=== PATIENT | female | born 1990 | race Caucasian/White ===

== ENCOUNTER → 2019-09-01 11:33 | Outpatient (BNVA) | payer OTHER, SELFPAY | PROVIDERS: Family Provider Nurse Practitioner Family; PCP Nurse Practitioner Family; Visit Provider Family Medicine | DX: O23.42 Unspecified infection of urinary tract in pregnancy, second trimester (principal); R39.9 Unspecified symptoms and signs involving the genitourinary system; Z3A.27 27 weeks gestation of pregnancy | CPT/HCPCS: 81003 ==

== ENCOUNTER 2019-12-06 00:17 | Inpatient (IN) | payer OTHER, SELFPAY ==
[2019-12-05] VITALS (162 sets, daily range): BP systolic 0–165; BP diastolic 0–103; PULSE 50–104; RESP 16–17; TEMP 36.6–37.5; O2SAT 89–100; BMI 32.5
[2019-12-05 07:03] LABS: Basophils % 0.3 %; Eosinophils # 0.2 10^3/uL (0.0-0.8); Eosinophils % 1.4 %; Hematocrit 34.5 % (37.0-47.0); Hemoglobin 11.1 g/dL (11.5-15.3); Lymphocytes # 1.9 10^3/uL (0.8-4.8); Lymphocytes % 17.2 %; Mean Corpuscular HGB Conc 32.2 g/dL (30.0-36.0); Mean Corpuscular Hemoglobin 27.8 pg (28.0-34.0); Mean Corpuscular Volume 86.3 fL (81-99); Mean Platelet Volume 11.1 fL (7.4-10.4); Monocytes # 0.8 10^3/uL (0.2-0.9); Monocytes % 7.7 %; Neutrophils # 7.9 10^3/uL (1.8-7.7); Neutrophils % 72.4 %; Nucleated Red Blood Cells % 0 %; Platelet Count 221 10^3/cmm (130-400); Red Cell Distribution Width 15.3 % (12.1-15.1); White Blood Count 10.9 10^3/uL (4.0-10.0)
[2019-12-05] MEDS: oxytocin 30 UNIT/500 ML BAG IV (07:15)
[2019-12-05] MEDS: dextrose 5%-lactated ringers 1,000 ML 125 ML IV ×3 (07:18→18:27)
[2019-12-05] MEDS: lactated ringers 1,000 ML 999 ML IV ×3 (13:53→14:54)
--- NOTE | 2019-12-05 15:21 | ANES.PREANE2 ---
Pre-Anesthetic Assessment Pre-Anesthetic Assessment: Height/Weight: Height 1.65 m Weight 88.904 kg Temp Pulse Resp BP Pulse Ox 98 F 70 16 117/61 97 12/05/19 13:56 12/05/19 15:16 12/05/19 13:56 12/05/19 15:19 12/05/19 15:13 Preop Diagnosis: IUP Proposed Procedure: epidural Familial anesthetic complications: none Last intake: eating popsciles Social: Social History: No alcohol and No tobacco Exam: Pre-Anes Outpt Exam: alert, oriented x 3, clear to auscultation bilaterally and regular rate & rhythm Airway: Cervical ROM: WNL MP: 2 Dentition: Full History/ROS: No significant history except as noted Anesthetic Plan: ASA status: 2 Anesthesia: Regional (specify below) Risk of > 500 ml blood loss (7ml/kg in children): No Meds/Allergies Current Medications: Current Medications Generic Name Dose Route Start Last Admin Trade Name Freq PRN Reason Stop Dose Admin Oxytocin 30 unit in 500 ml s @ 1 mls/hr 12/05/19 06:15 12/05/19 12:15 Pitocin IV 26 milliunit/min .Q24H SADE 26 mls/hr Titration Protocol 1 MILLIUNIT/MIN Dextrose/Lactated Ringer's 1,000 mls @ 125 m ls/hr 12/05/19 06:15 12/05/19 13:54 Dextrose 5%-Lact ated Ringers IV 0 mls/hr .Q8H SADE Infusion PFSH Anesthesia Female Reproductive History: Date of last menstrual period: 02/23/19 (27 WEEKS - DUE DATE 11-30-19) : 2 Para: 0 Data Anesthesia CBC & Chem 7: 12/05/19 06:40 Other Labs: Laboratory Results - last 48 hr 12/05/19 06:40 WBC 10.9 H RBC 4.00 L Hgb 11.1 L Hct 34.5 L MCV 86.3 MCH 27.8 L MCHC 32.2 RDW 15.3 H Plt Count 221 MPV 11.1 H Neut % (Auto) 72.4 Lymph % (Auto) 17.2 [place] % (Auto) 7.7 Eos % (Auto) 1.4 Baso % (Auto) 0.3 Neut # (Auto) 7.9 H Lymph # (Auto) 1.9 [place] # (Auto) 0.8 Eos # (Auto) 0.2 Baso # (Auto) 0.0 Nucleated RBC % (auto) 0 Nucleated RBCs # 0.0 Cardiac Studies: No Data to Display
--- NOTE | 2019-12-05 15:21 | ANES.PROC ---
Anesthesia Procedures Procedure/Date: 12/05/19 Epidural: Time Out Performed: Yes Consents Signed: Procedure Consent and NPO Consent Consent: requested by attending/covering physician, from patient, risks and benefits reviewed and patient agrees to proceed Lumbar Level: L2-L3 Epidural position: sitting Epidural procedure: sterile prep of area, 1% lidocaine to numb the area, 18 g needle, negative for paresthesia passed, neg for paresthesia, test dose given, 1.5% xylocaine 1:200k epi (3 cc), placed PCEA, no systemic response, sterile dressing applied, L.U.D. no apparent complications and 0.2% Ropiavacaine @ mls/hr (13 ml/hr) Additional Comments: CARLENE at 5 cm, threaded to 11 cm. Bupivicaine 0.25% 8 cc w/ fentanyl 100 mcg given via epidural with good relief (pain level decreased from 5 to 3). Noted stronger block on L side, patient's l leg numb. Instructed patient to use epidural bolus to increase amount of fluid in space and spread over to R side, instructed to lay on R side. If r sided pain, next step would be to pull back 1 cm to 10 cm.
[2019-12-05] MEDS: ondansetron 2 mg/ML SDV 2 mL 4 MG IVP (22:09)
--- NOTE | 2019-12-05 23:54 | PM.DELIVERY ---
Delivery Note: Date of delivery: December 05, 2019 Pre-Delivery Course: The patient had routine care at [facility]. She was GBS negative. Her was uncomplicated. Delivery: This is a 29-year-old at 40 weeks 5 days gestation who was admitted for postdate induction. Her cervix was favorable so she was placed on Pitocin. She had artificial rupture of membranes with a small amount of clear fluid. She received an epidural for pain management. Rupture of membranes was approximately 10 hours prior to delivery. She had a normal spontaneous vaginal delivery of a viable male infant weight 4120 g 9 pounds 1 ounce over an intact perineum. Apgars 8 and 9. The infant was suctioned at delivery and placed on the mother's chest. The cord was clamped and cut. The placenta was delivered grossly intact and normal to inspection. There was a 3rd degree perineal laceration. The anal sphincter muscles were reapproximated using 3-0 Vicryl in an interrupted fashion. The second-degree laceration was then repaired using 3-0 chromic in a running fashion. Mother and infant were doing well after delivery. Estimated blood loss 300 mL A&P Assessment and plan (1) Normal spontaneous vaginal delivery: Status: Acute (2) Third degree perineal laceration during delivery: Status: Acute Coding Level of Care Code Acute Computational Theory Scientist for [facility] Diagnoses Normal spontaneous vaginal delivery O80 Third degree perineal laceration during delivery O70.20
[2019-12-06] VITALS (20 sets, daily range): BP systolic 0–168; BP diastolic 0–78; PULSE 64–83; RESP 16–20; TEMP 36.6–37.2; O2SAT 96–98
[2019-12-06] MEDS: oxytocin 30 UNIT/500 ML BAG 600 UNIT IV (07:32)
[2019-12-06] MEDS: prenatal vitamin Capsule 1 CAP PO (08:52)
[2019-12-06] MEDS: docusate sodium 100 mg Capsule PO ×2 (08:53→18:43)
[2019-12-06] MEDS: benzocaine-menthol 78 gm Canister 1 SPRAY TOPICAL (08:53)
[2019-12-06 12:46] LABS: Hemoglobin 10.3 g/dL (11.5-15.3); Mean Corpuscular HGB Conc 32.2 g/dL (30.0-36.0); Mean Corpuscular Hemoglobin 27.8 pg (28.0-34.0); Mean Corpuscular Volume 86.5 fL (81-99); Mean Platelet Volume 11.1 fL (7.4-10.4); Platelet Count 209 10^3/cmm (130-400); Red Cell Distribution Width 15.5 % (12.1-15.1); White Blood Count 20.6 10^3/uL (4.0-10.0)
--- NOTE | 2019-12-06 19:01 | P.PN_ITS ---
Subjective Subjective: Interval history: Doing fine. 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 Perineal discomfort relieved with Dermoplast Vitals/I&O/Wt Last Vital Signs Temp 97.8 F 12/06/19 10:00 Pulse 70 12/06/19 10:00 Resp 20 H 12/06/19 10:00 BP 122/72 12/06/19 10:00 Pulse Ox 98 12/06/19 10:00 12/06/19 12/06/19 12/06/19 06:59 14:59 22:59 Intake Total 1433.917 / 5836.367 Output Total 700 / 1000 2500 / 2500 200 / 2700 Balance 733.917 / 4836.367 -2500 / -2500 -200 / -2700 Weight last 48 hrs Weight 196 lb Weight 196 lb Physical Exam Const: COMMON NORMALS: no acute distress and healthy appearing GENERAL APPEARANCE: cooperative and comfortable HENMT: COMMON NORMALS: normocephalic HEAD & SCALP: normocephalic Eye: COMMON NORMALS: Equal, round and reactive pupils present and EOMs intact bilaterally PUPIL: Yes Equal, round and reactive pupils present Chest: COMMONS NORMALS: normal inspection of the chest Resp: COMMON NORMALS: normal respiratory effort and clear to auscultation bilaterally AUSCULTATION: clear to auscultation bilaterally Cardio: COMMON NORMALS: regular rate and regular rhythm RATE: regular rate RHYTHM: regular rhythm GI: COMMON NORMALS: Soft to palpation, non-tender and no masses PALPATION: Yes Soft to palpation Extremity: COMMON NORMALS: no calf tenderness and no pedal edema Urinary Catheter Management^: Hammond: Cath Placed During This Visit: yes, but has since been removed by the nurse Reason for Continuing Indwelling Catheter: Other Urinary Catheter Date of Insertion: 12/05/19 Urinary Catheter Time of Insertion: 15:59 Date Urinary Catheter Removed: 12/05/19 Time Urinary Catheter Discontinued: 22:10 Data : 12/06/19 12:39 A&P Assessment and plan (1) Third degree perineal laceration during delivery: Status: Acute (2) Normal spontaneous vaginal delivery: Doing well. Continue routine care Status: Acute Attestations Medical Necessity Statement*: Routine care Coding Level of Care Code Acute Tongue Stitcher for [facility]joshua Diagnoses Third degree perineal laceration during delivery O70.20 Normal spontaneous vaginal delivery O80
[2019-12-07 03:10] VITALS: BP 119/71; PULSE 59; RESP 18; TEMP 36.7; O2SAT 97
[2019-12-07] MEDS: docusate sodium 100 mg Capsule PO (08:49)
[2019-12-07] MEDS: prenatal vitamin Capsule 1 CAP PO (08:50)
[2019-12-07 10:10] VITALS: BP 120/70; PULSE 63; RESP 18; TEMP 36.8; O2SAT 97
--- NOTE | 2019-12-07 10:31 | PM.OBGYDC ---
Discharge Providers PASTRY ARTIST Date of Admission: 12/06/19 00:17 Date of Discharge: 12/07/19 Attending Provider at Admission: Sarai Minaya MD Attending Provider at Discharge: Sarai Minaya MD Primary Care Provider: Alexandre Tobias Diagnoses at Discharge Discharge Diagnosis (1) Third degree perineal laceration during delivery: Status: Acute (2) Normal spontaneous vaginal delivery: Status: Acute Reason for Visit Reason for Visit: Reason For Visit: INDUCTION Hospital Course Hospital Course: This is a 29-year-old G2, P1 who was admitted for postdate induction. She had a normal spontaneous vaginal delivery of a viable male infant. Mother and infant did well after delivery. She had decreased vaginal bleeding, was ambulating, tolerating a regular diet, and was comfortable with discharge home on day 1-2. Information Peripartum Data: Infant Delivery Method: Vaginal Physical Exam HENMT: COMMON NORMALS: normocephalic HEAD & SCALP: normocephalic FACE & SINUS: normal facial exam Eye: COMMON NORMALS: Equal, round and reactive pupils present and EOMs intact bilaterally PUPIL: Yes Equal, round and reactive pupils present Chest: COMMONS NORMALS: normal inspection of the chest Resp: COMMON NORMALS: normal respiratory effort, No use of accessory muscles and clear to auscultation bilaterally AUSCULTATION: clear to auscultation bilaterally Cardio: COMMON NORMALS: regular rate and regular rhythm RATE: regular rate RHYTHM: regular rhythm GI: COMMON NORMALS: Soft to palpation, non-tender and no masses PALPATION: Yes Soft to palpation Extremity: GENERAL: Yes calf tenderness and Yes edema Psych: COMMON NORMALS: mental status grossly normal Urinary Catheter Management^: Hammond: Cath Placed During This Visit: yes, but has since been removed by the nurse Reason for Continuing Indwelling Catheter: Other Urinary Catheter Date of Insertion: 12/05/19 Urinary Catheter Time of Insertion: 15:59 Date Urinary Catheter Removed: 12/05/19 Time Urinary Catheter Discontinued: 22:10 Discharge Data Data Completed and Pending: Labs from last 24 hours 12/06/19 12:39 WBC 20.6 H RBC 3.70 L Hgb 10.3 L Hct 32.0 L MCV 86.5 MCH 27.8 L MCHC 32.2 RDW 15.5 H Plt Count 209 MPV 11.1 H Vitals: Last Vital Signs Temp 98.2 F 12/07/19 10:10 Pulse 63 12/07/19 10:10 Resp 18 12/07/19 10:10 BP 120/70 12/07/19 10:10 Pulse Ox 97 12/07/19 10:10 Discharge Plan Discharge Patient Disposition: Home, Self-Care Condition: Stable Prescriptions: Continued prenat.vits,greg,[id number] Tablet 1 tab PO DAILY RF: 0 Iron (ferrous sulfate) 325 mg (65 mg iron) Tablet 325 mg PO DAILY RF: 0 cranberry 400 mg Capsule 400 mg PO DAILY RF: 0 Discharge Orders: Discharge Order (Routine); Ordered 12/07/19 Ordered By: Sarai Minaya Discharge Diet: Usual diet Discharge Activity: Limit activity as instructed Discharge Attestations PASTRY ARTIST Time Spent in Discharge Care*: less than 30 min Coding Level of Care Code Acute Cardiac Nurse Specialist for [facility] Diagnoses Third degree perineal laceration during delivery O70.20 Normal spontaneous vaginal delivery O80
[2019-12-07 16:30] VITALS: BP 112/73; PULSE 73; RESP 18; TEMP 36.8; O2SAT 99
== END 2019-12-07 14:55 | disposition home or self-care (01) | DRG 806 ==
LOC: OBGYN 00:18
PROVIDERS: Admitting Provider Family Medicine; Family Provider Nurse Practitioner Family; PCP Nurse Practitioner Family; Visit Provider Family Medicine
DX: O48.0 Post-term pregnancy (principal); O70.20 Third degree perineal laceration during delivery, unspecified; Z37.0 Single live birth; Z3A.40 40 weeks gestation of pregnancy; Z87.440 Personal history of urinary (tract) infections
CPT/HCPCS: 12345; 36415; 51702; 59025; 59409; 85025; 85027; 96375; J2405; J2795

== ENCOUNTER 2022-01-01 06:44 | Inpatient (IN) | payer OTHER, SELFPAY ==
[2022-01-01] VITALS (79 sets, daily range): BP systolic 104–168; BP diastolic 55–91; PULSE 53–93; RESP 16–17; TEMP 36.4–40.4; O2SAT 98; BMI 37.0
[2022-01-01 07:56] LABS: Basophils % 0.2 %; Eosinophils # 0.1 10^3/uL (0.0-0.8); Hematocrit 34.5 % (37.0-47.0); Hemoglobin 11.9 g/dL (11.5-15.3); Lymphocytes # 2.1 10^3/uL (0.8-4.8); Lymphocytes % 18.4 %; Mean Corpuscular HGB Conc 34.5 g/dL (30.0-36.0); Mean Corpuscular Hemoglobin 29.3 pg (28.0-34.0); Mean Platelet Volume 11.2 fL (7.4-10.4); Monocytes # 0.9 10^3/uL (0.2-0.9); Monocytes % 7.6 %; Neutrophils # 8.39 10^3/uL (1.8-7.7); Neutrophils % 72.3 %; Nucleated Red Blood Cells % 0 %; Platelet Count 232 10^3/cmm (130-400); Red Blood Count 4.06 10^6/uL (4.1-5.3); Red Cell Distribution Width 13.6 % (12.1-15.1); White Blood Count 11.6 10^3/uL (4.0-10.0)
[2022-01-01] MEDS: oxytocin 30 UNIT/500 ML BAG IV (07:57)
[2022-01-01] MEDS: dextrose 5%-lactated ringers 1,000 ML 125 ML IV (07:57)
[2022-01-01] MEDS: lactated ringers 1,000 ML 999 ML IV ×2 (13:00→14:21)
--- NOTE | 2022-01-01 14:14 | ANES.PREANE2 ---
Pre-Anesthetic Assessment Height/Weight: Height 1.65 m Weight 101.151 kg Temp Pulse Resp BP 98.6 F 73 17 122/60 01/01/22 10:08 01/01/22 13:36 01/01/22 07:00 01/01/22 13:36 Preop Diagnosis: IUP epidural Familial anesthetic complications: none Was Beta Celsa taken within 24 hours: N/A Was Clonidine taken within 24 hours: N/A Last Intake: 06:00 Social No alcohol and No tobacco Exam alert, oriented x 3, clear to auscultation bilaterally and regular rate & rhythm Airway Submandibular: within normal limits Cervical ROM: within normal limits Mallampati: Class II Dentition: full Pulmonary None reported CV/HEM None reported None reported Hepatic None reported GI None reported Metabolic None reported Musc/skel None reported Neuropsych None reported Anesthetic Plan ASA status: 2 Anesthesia: Regional (specify below) (epidural) Medications/Allergies Home Medications Medication Instructions Recorded Confirmed Last Taken Type prenat.vits,greg,qnm-tfsy-vbcpj 1 tab PO DAILY 09/01/19 01/01/22 12/05/19 05:00 History ferrous sulfate 325 mg (65 mg 325 mg PO DAILY 12/05/19 01/01/22 12/05/19 05:00 History iron) tablet (Iron (ferrous sulfate)) Allergies Allergy/AdvReac Type Severity Reaction Status Date / Time No Known Allergies Allergy Verified 12/05/19 06:51 Current Medications Generic Name Dose Route Start Last Admin Trade Name Freq PRN Reason Stop Dose Admin Dextrose/Lactated Ringer's 1,000 mls @ 125 mls/hr 01/01/22 07:00 01/01/22 07:57 Dextrose 5%-Lactated Ringers IV 125 mls/hr .Q8H SADE Administration Oxytocin 30 unit in 500 mls @ 1 mls/hr 01/01/22 07:30 01/01/22 11:00 Pitocin IV 20 milliunit/min .Q24H SADE 20 mls/hr Titration Protocol 1 MILLIUNIT/MIN Lactated Ringer's 1,000 mls @ 999 mls/hr 01/01/22 12:43 01/01/22 13:00 Lactated Ringers IV 999 mls/hr .Q1H1M PRN Administration See label comments PFSH Anesthesia Female Reproductive History Date of last menstrual period: 02/23/19 (27 WEEKS - DUE DATE 11-30-19) : 3 Para: 0 Data Anesthesia : 01/01/22 07:30 Short CBC 01/01/22 Range/Units 07:30 WBC 11.6 H (4.0-10.0) 10^3/uL Hgb 11.9 (11.5-15.3) g/dL Hct 34.5 L (37.0-47.0) % MCV 85.0 (81-99) fl Plt Count 232 (130-400) 10^3/cmm Neut % (Auto) 72.3 % Neut # (Auto) 8.39 H (1.8-7.7) 10^3/uL Cardiac Studies: No Data to Display
--- NOTE | 2022-01-01 14:51 | ANES.PROC ---
Anesthesia Procedures Procedure/Date: 01/01/22 Epidural: Time Out Performed: Yes Consents Signed: Procedure Consent and NPO Consent Consent: requested by attending/covering physician, from patient, risks and benefits reviewed and patient agrees to proceed Lumbar Level: L3-L4 Epidural position: sitting Epidural procedure: sterile prep of area (betadine), 1% lidocaine to numb the area (3ml), 18 g needle, negative for paresthesia passed, neg for paresthesia, test dose given, 1.5% xylocaine 1:200k epi (5ml), 0.2% Ropivacaine bolus ml (5ml), placed PCEA, no systemic response, sterile dressing applied, L.U.D. no apparent complications and 0.2% Ropiavacaine @ mls/hr (13ml/hr)
--- NOTE | 2022-01-01 17:18 | PC.NURSE ---
1710 Pt helped to turn to left lateral position.
--- NOTE | 2022-01-01 17:41 | PC.NURSE ---
Pitocin turned down to 5mu/min per Dr. iMnaya's order.
[2022-01-02] VITALS (39 sets, daily range): BP systolic 108–192; BP diastolic 55–81; PULSE 57–105; RESP 16–17; TEMP 36.7–37.4; O2SAT 96–98
[2022-01-02] MEDS: lactated ringers 1,000 ML 999 ML IV (00:20)
--- NOTE | 2022-01-02 04:18 | PM.OPHPUD ---
Labor & Delivery H&P Update Date of Procedure: January 01, 2022 Date H&P Performed: 12/29/21 Admission Diagnosis: at 39w6d gestation Preop diagnosis: IUP Planned procedure: Elective induction
[2022-01-02] MEDS: dextrose 5%-lactated ringers 1,000 ML 125 ML IV (05:30)
[2022-01-02] MEDS: oxytocin 30 UNIT/500 ML BAG 60 UNIT IV (06:05)
[2022-01-02] MEDS: benzocaine-menthol 78 gm Canister 1 SPRAY TOPICAL (09:13)
[2022-01-02] MEDS: prenatal vitamin Capsule 1 CAP PO (09:13)
[2022-01-02] MEDS: lanolin oint 7 gm 1 APPLIC TOPICAL (09:13)
[2022-01-02] MEDS: docusate sodium 100 mg Capsule PO ×2 (09:13→17:47)
[2022-01-02] MEDS: ibuprofen 800 mg tablet PO ×3 (09:13→21:53)
--- NOTE | 2022-01-02 17:46 | PM.DELIVERY ---
Delivery Note: Date of delivery: 01/02/2022 Pre-Delivery Course: The pt had routine care at [facility]. There were no complicaitons during the . Delivery: This is a 31 y/o at 39w6d gestation who was admitted for elective induction. She had a favorable cervix and was started on Pitocin. She received an epidural for pain manamgent. She had a of a viable male , APGARS 8 and 9 over an intact perineum. She onyl had to push one time. The infant was suctioned and placed on the mothers chest. The cord was clamped and cut. The placenta was delivered grossly intact and normal to inspection. There was a second degree perineal laceration that was sutured using 3-0 chromic. Mother and inanft were doing well after delivery. Coding Level of Care Code Acute Car Clerk Pullman for [facility]
[2022-01-02 19:21] LABS: Hematocrit 32.7 % (37.0-47.0); Hemoglobin 10.9 g/dL (11.5-15.3); Mean Corpuscular HGB Conc 33.3 g/dL (30.0-36.0); Mean Corpuscular Hemoglobin 28.8 pg (28.0-34.0); Mean Corpuscular Volume 86.5 fl (81-99); Mean Platelet Volume 11.3 fL (7.4-10.4); Platelet Count 206 10^3/cmm (130-400); Red Blood Count 3.78 10^6/uL (4.1-5.3); White Blood Count 21.2 10^3/uL (4.0-10.0)
[2022-01-03 04:00] VITALS: BP 117/68; PULSE 64; RESP 14; TEMP 36.6; O2SAT 96
[2022-01-03] MEDS: prenatal vitamin Capsule 1 CAP PO (09:14)
[2022-01-03] MEDS: docusate sodium 100 mg Capsule PO (09:14)
[2022-01-03] MEDS: ibuprofen 800 mg tablet PO (09:14)
[2022-01-03 10:36] VITALS: BP 109/71; PULSE 117; RESP 18; TEMP 36.8; O2SAT 99
--- NOTE | 2022-01-03 12:42 | PM.DCS ---
Discharge Providers Date of Admission: 01/01/22 06:44 Date of Discharge: January 03, 2022 Attending Provider at Admission: Sarai Minaya MD Attending Provider at Discharge: Sarai Minaya MD Primary Care Provider: Alexandre Tobias Reason for Visit Reason for Visit: IOL Hospital Course Hospital Course This is a 31-year-old G2 now P2 who was admitted for induction. She had a normal spontaneous vaginal delivery of a viable male infant. Mother and were doing well after delivery. Mother was ambulating, tolerating a regular diet, had no pain and had decreased vaginal bleeding. Physical Exam Narrative: Alert and oriented, sitting up in bed, heart regular rate and rhythm, lungs clear to auscultation back bilaterally, abdomen is soft and nontender, fundus is firm, extremities do have 2+ edema but no calf tenderness. Urinary Catheter Management: Hammond: Cath Placed During This Visit: yes, but has since been removed by the nurse Reason for Continuing Indwelling Catheter: Required Immobilization for Trauma or Surgery or Anesthesia Urinary Catheter Date of Insertion: 01/01/22 Urinary Catheter Time of Insertion: 15:20 Date Urinary Catheter Removed: 01/02/22 Time Urinary Catheter Discontinued: 03:53 Discharge Data Studies Completed and Pending Laboratory Results WBC 21.2 10^3/uL (4.0-10.0) H 01/02/22 18:20 Corrected WBC Cancelled 01/02/22 16:25 RBC 3.78 10^6/uL (4.1-5.3) L 01/02/22 18:20 Hgb 10.9 g/dL (11.5-15.3) L 01/02/22 18:20 Hct 32.7 % (37.0-47.0) L 01/02/22 18:20 MCV 86.5 fl (81-99) 01/02/22 18:20 MCH 28.8 pg (28.0-34.0) 01/02/22 18:20 MCHC 33.3 g/dL (30.0-36.0) 01/02/22 18:20 RDW 14.0 % (12.1-15.1) 01/02/22 18:20 Plt Count 206 10^3/cmm (130-400) 01/02/22 18:20 MPV 11.3 fL (7.4-10.4) H 01/02/22 18:20 Neut % (Auto) 72.3 % 01/01/22 07:30 Lymph % (Auto) 18.4 % 01/01/22 07:30 [place] % (Auto) 7.6 % 01/01/22 07:30 Eos % (Auto) 1.0 % 01/01/22 07:30 Baso % (Auto) 0.2 % 01/01/22 07:30 Neut # (Auto) 8.39 10^3/uL (1.8-7.7) H 01/01/22 07:30 Lymph # (Auto) 2.1 10^3/uL (0.8-4.8) 01/01/22 07:30 [place] # (Auto) 0.9 10^3/uL (0.2-0.9) 01/01/22 07:30 Eos # (Auto) 0.1 10^3/uL (0.0-0.8) 01/01/22 07:30 Baso # (Auto) 0.0 10^3/uL (0.0-0.1) 01/01/22 07:30 Nucleated RBC % (auto) 0 % 01/01/22 07:30 Nucleated RBCs # 0.0 /100WBC 01/01/22 07:30 Vitals Last Vital Signs Temp 98.3 F 01/03/22 10:36 Pulse 117 H 01/03/22 10:36 Resp 18 01/03/22 10:36 BP 109/71 01/03/22 10:36 Pulse Ox 99 01/03/22 10:36 Discharge Plan Discharge Patient Disposition: Home Condition: Stable Prescriptions: Continued prenat.vits,greg,[id number] Tablet 1 tab PO DAILY 0RF ferrous sulfate [Iron (ferrous sulfate)] 325 mg (65 mg iron) Tablet 325 mg PO DAILY 0RF Discharge Orders: Discharge Order (Routine); Ordered 01/03/22 Ordered By: Sarai Minaya Referrals: Sarai Minaya MD [Physician] - 1 month Discharge Diet: Usual diet Discharge Activity: Limit activity as instructed Patient Instructions: Depression (DC), Expression, Collection and Storage of Breast Milk (DC), Bleeding (DC), Preeclampsia and Eclampsia After Delivery (GEN), OB Discharge Report, OB Food/Drug Interaction Guide, OB Care at Home, Opioid Safety, OB Vaginal Deliveries Discharge Attestations Time Spent in Discharge Care*: less than 30 min Quality Metrics Clinical Quality Measures [ No reported AMI, CVA or VTE this stay] Coding Level of Care Code Acute Chg FW DC note
[2022-01-03 14:08] VITALS: BP 121/74; PULSE 65; RESP 18; TEMP 36.5
--- NOTE | 2022-01-03 15:29 | ANE.PACU2 ---
Inpatient post-anesthesia follow up: Airway intact: Yes Vital signs: Temperature 97.7 F Pulse Rate 65 Respiratory Rate 18 Blood Pressure 121/74 Pulse Oximetry 99 Oxygen Delivery Me thod Room Air Oxygen Flow Rate Fraction of Inspir ed Oxygen Hydration adequate: Yes Nausea and vomiting: No Pain level: 2 Mental status: Baseline
== END 2022-01-03 14:35 | disposition home or self-care (01) | DRG 807 ==
LOC: OPOB 06:49
PROVIDERS: Admitting Provider Family Medicine; PCP Nurse Practitioner Family; Visit Provider Family Medicine
DX: O80 Encounter for full-term uncomplicated delivery (principal); Z37.0 Single live birth; Z3A.39 39 weeks gestation of pregnancy; O70.1 Second degree perineal laceration during delivery
CPT/HCPCS: 36415; 51702; 59025; 59409; 85025; 85027; J2795